=== PATIENT | male | born 1980 | race Caucasian/White ===

== ENCOUNTER 2023-06-03 18:00 | Inpatient (IN) | payer OTHER ==
[~2023-06-03] VITALS: Ht 185.4 cm; Wt 111.0 kg
[~2023-06-03 18:00] MED LIST: LANS30EC
[2023-06-03] MEDS ORDERED: PANT20 PO (19:29)
[2023-06-03] MEDS ORDERED: LAMO100 PO (19:29)
[2023-06-03] MEDS ORDERED: PRAZ2 PO (19:29)
[2023-06-03 20:06] LABS: Base Excess Venous 0.6 mmol/L; Bicarbonate Venous 24.1 mmol/L (24.0-30.0); PCO2 Venous 41.9 mmHg (38-42); pH Blood Venous 7.39 (7.34-7.37)
[2023-06-03] MEDS ORDERED: Azithromycin 250 MG Tab PO ONE (20:55)
[2023-06-03] MEDS ORDERED: CefTRIAXone Sodium 1,000 MG in NS 50 ML IV ONE (20:55)
[2023-06-03] MEDS ORDERED: Albuterol 2.5 MG/3 ML VIAL INH PRN (21:05)
[2023-06-03] MEDS ORDERED: Ondansetron HCl 2 MG / ML 2ML Vial IV PRN (21:10)
[2023-06-03] MEDS ORDERED: NS 1,000 ML IV SCH (21:10)
[2023-06-03] MEDS ORDERED: FLU VACC QS2023-24(6MOS UP)/PF 60 MCG/0.5 ML SYRINGE IM SCH (21:10)
[2023-06-03] MEDS ORDERED: Cefepime HCl 2,000 MG in NS 100 ML IV SCH (21:14)
[2023-06-03] MEDS ORDERED: QUETIAPINE FUM100 M3 PO (21:18)
[2023-06-03] MEDS ORDERED: TRAZ100 PO (21:18)
[2023-06-03 22:31] LABS: Adenovirus Not Detected (NOT DETECT); Bordetella pertussis Not Detected (NOT DETECT); Chlamydophila pneumoniae Not Detected (NOT DETECT); Coronavirus 229E Not Detected (NOT DETECT); Coronavirus HKU1 Not Detected (NOT DETECT); Coronavirus NL63 Not Detected (NOT DETECT); Coronavirus OC43 Not Detected (NOT DETECT); Human Metapneumovirus Not Detected (NOT DETECT); Human Rhinovirus/Enterovirus Not Detected (NOT DETECT); Influenza A/2009-H1 Not Detected (NOT DETECT); Influenza A/H1 Not Detected (NOT DETECT); Influenza A/H3 Not Detected (NOT DETECT); Influenza B Not Detected (NOT DETECT); Mycoplasma pneumoniae Not Detected (NOT DETECT); Parainfluenza Virus 1 Not Detected (NOT DETECT); Parainfluenza Virus 2 Not Detected (NOT DETECT); Parainfluenza Virus 3 Not Detected (NOT DETECT); Parainfluenza Virus 4 Not Detected (NOT DETECT); Respiratory Syncytial Virus Not Detected (NOT DETECT); SARS-Cov-2 (COVID-19), BioFire Not Detected (NOT DETECT)
--- NOTE | 2023-06-03 23:10 | NUR ---
ADMIT NOTE PT TRANSPORTED VIA ED GURNEY, AMBULATED TO HOSPITAL BED. EDUACTED ON SMOKING POLICY AND FIRE PREVENTION. PT BELONGINGS AT BEDSIDE. RECEIVED REPORT FROM ED RN SCOTT. BED IN LOWEST POSITION WITH CALL LIGHT WITHIN REACH.
[2023-06-03 23:14] VITALS: BP 128/87
[2023-06-04] MEDS ORDERED: ACET500 PO (00:39)
[2023-06-04] MEDS ORDERED: CODEINE-GUAIFE120 M1 PO (00:40)
[2023-06-04] MEDS ORDERED: ALBU90OI INH (00:40)
[2023-06-04] MEDS ORDERED: DISU250 PO (00:41)
[2023-06-04] MEDS ORDERED: DOXY100 PO (00:41)
[2023-06-04] MEDS ORDERED: IBUP600 PO (00:42)
[2023-06-04] MEDS ORDERED: KETOCONAZOLE TOP (00:44)
[2023-06-04] MEDS ORDERED: STIOLTO RESPIMAT4 G2 INH (00:48)
[2023-06-04] MEDS ORDERED: SILD50TA PO (00:48)
[2023-06-04 03:30] VITALS: BP 121/97
[2023-06-04] MEDS ORDERED: Acetaminophen 500 MG Tab PO PRN (03:40)
[2023-06-04] MEDS ORDERED: Ipratropium/Albuterol SulF 2.5-0.5MG/3 ML Amp INH SCH (03:45)
--- NOTE | 2023-06-04 03:56 | NUR ---
SHIFT SUMMARY PT ADMITTED THIS SHIFT. A&O X4, SBA TO BATHROOM. PT HAD SHOWER AFTER ARRIVING TO UNIT. CURRENTLY ON 3L O2 WITH SATS ABOVE 95%. RESPIRATORY PANEL NEGATIVE, ISOLATION COMPLETE. PT REFUSED TO WEAR SCDS HE GETS UP TO THE BATHROOM FREQUENTLY. PATIENT HAD TROUBLE FALLING ASLEPP. CALLED DR JOHNSON TO ORDER HOME BEDTIME MEDS. NS @ 100 ML/HR INFUISING. BED KEPT IN LOWEST POSIITON WITH CALL LIGHT WITHIN REACH. PT CALLS APPROPRAIETLY FOR NEEDS.
[2023-06-04] MEDS ORDERED: QUEtiapine Fumarate 100 MG Tab PO SCH (04:00)
[2023-06-04] MEDS ORDERED: TraZODone HCl 100 MG Tab PO SCH (04:00)
[2023-06-04] MEDS ORDERED: Pantoprazole Sodium 40 MG Tab PO SCH (06:00)
[2023-06-04 07:41] VITALS: BP 129/76
[2023-06-04] MEDS ORDERED: GuaiFENesin 600 MG TabCR PO SCH (09:00)
[2023-06-04] MEDS ORDERED: Azithromycin 500 MG in NS 250 ML IV SCH (09:00)
[2023-06-04] MEDS ORDERED: Enoxaparin 40 MG/0.4 ML SYR SC SCH (09:00)
[2023-06-04] MEDS ORDERED: LamoTRIgine 100 MG Tab PO SCH (09:00)
[2023-06-04 11:35] LABS: Hemoglobin 16.8 g/dL (13.5-17.5); Mean Corpuscular HGB 32.9 pg (26.0-34.0); Mean Corpuscular HGB Conc 36.5 g/dL (31.5-36.5); Mean Corpuscular Volume 90 fL (80-100); Mean Platelet Volume 9.2 fL (9.1-12.4); Platelet Count 312 K/mm3 (150-400); RDW Coefficient Variation 14.4 % (11.7-14.2); RDW Standard Deviation 42.3 fL (35.1-46.3); White Blood Cell Count 10.47 K/mm3 (4.00-11.30)
[2023-06-04 12:01] LABS: Bun/Creatinine Ratio 14.9 (12.0-20.0); Creatinine, Blood 1.14 mg/dL (0.60-1.20); Potassium, Blood 4.4 mmol/L (3.5-5.5)
--- NOTE | 2023-06-04 12:34 | NUR ---
pt laying in bed awake a/ox4, cooperative with care for the most part, is refusing lab draws, and did not understand that we can't pull blood from a piv, asked him to reconsider, he was agreeable after he took a nap, lungs are clear in uppers pool, course, crackles in bases, resp even and unalbored, no cough noted at this time, on r/a, hrr, no edema noted, ppp+2, cap refill <3 sec, vs stable, afebrile, piv to rac site is clear and patent, btx4, abd flat soft nontender, voids without diff, skin c/w/d, maew, brown, call light in reach.
--- NOTE | 2023-06-04 12:45 | NUR ---
Pt. is awake in bed when he welcomed my visit. Pt. is pleasant and displayed evidence of awareness and engagement. Pt. displayed evidence of being less interested in spiritual care, and more interested in conversation. Facilitated a life review, and after some time his parents arrived. Ptt. verbalized gratitude for the spiritual care visit.
[2023-06-04 14:52] VITALS: BP 117/84
--- NOTE | 2023-06-04 18:57 | NUR ---
Pt was irritable this am, he states he was up all night, he slept most of the shift, and is in much better spirits, iv was leaking at the end of the shift, so removed intact, and pt got into the shower, linen was changed. pt has a harsh productive cough, no further changes this shift. call light in reach.
[2023-06-04 18:59] LABS: Acinetobacter baumannii DNA Not Detected copy/mL (NOT DETECT); Adenovirus DNA Not Detected (NOT DETECT); Chlamydia pneumonia Not Detected (NOT DETECT); Enterobacter cloacae DNA Not Detected copy/mL (NOT DETECT); Escherichia coli DNA Not Detected copy/mL (NOT DETECT); Haemophilus influenzae DNA Not Detected copy/mL (NOT DETECT); Human Coronavirus RNA Not Detected (NOT DETECT); Human Metapneumovirus RNA Not Detected (NOT DETECT); Influenza virus A RNA Not Detected (NOT DETECT); Influenza virus B RNA Not Detected (NOT DETECT); Klebsiella aerogenes DNA Not Detected copy/mL (NOT DETECT); Klebsiella oxytoca DNA Not Detected copy/mL (NOT DETECT); Klebsiella pneumoniae DNA Not Detected copy/mL (NOT DETECT); Legionella pneumophila Not Detected (NOT DETECT); Moraxella catarrhalis DNA Not Detected copy/mL (NOT DETECT); Mycoplasma pneumoniae Not Detected (NOT DETECT); Parainfluenza virus RNA Not Detected (NOT DETECT); Proteus sp DNA Not Detected copy/mL (NOT DETECT); Pseudomonas aeruginosa DNA Not Detected copy/mL (NOT DETECT); Respiratory syncytial Vir RNA Not Detected (NOT DETECT); Rhinovirus+Enterovirus RNA Not Detected (NOT DETECT); Serratia marcescens DNA Not Detected copy/mL (NOT DETECT); Staphylococcus aureus DNA Not Detected copy/mL (NOT DETECT); Streptococcus agalactiae DNA Not Detected copy/mL (NOT DETECT); Streptococcus pneumoniae DNA Not Detected copy/mL (NOT DETECT); Streptococcus pyogenes DNA Not Detected copy/mL (NOT DETECT)
[2023-06-04 19:59] VITALS: BP 126/83
[2023-06-04] MEDS ORDERED: Lactobacil 2-S.Thermo-Bifido 1 1 Cap PO SCH (21:00)
[2023-06-04] MEDS ORDERED: Prazosin HCl 1 MG Cap PO SCH (21:00)
[2023-06-05 04:52] VITALS: BP 112/73
[2023-06-05 06:19] LABS: Albumin, Blood 3.4 g/dL (3.4-5.0); Albumin/Globulin Ratio 1.1 (0.8-1.8); Bilirubin, Total 0.9 mg/dL (0.1-1.0); Bun/Creatinine Ratio 12.6 (12.0-20.0); Calcium, Blood 8.7 mg/dL (8.5-10.1); Creatinine, Blood 1.11 mg/dL (0.60-1.20); Globulin, Blood 3.2 g/dL (2.2-4.0); Potassium, Blood 4.1 mmol/L (3.5-5.5); Total Protein, Blood 6.6 g/dL (6.4-8.2)
[2023-06-05 06:27] LABS: BASOPHILS ABSOLUTE AUTO 0.07 K/mm3 (0.00-0.23); BASOPHILS PERCENT AUTO 1 % (0-2); EOSINOPHILS ABSOLUTE AUTO 0.14 K/mm3 (0.00-0.68); EOSINOPHILS PERCENT AUTO 1 % (0-6); Hematocrit 48.6 % (37.0-53.0); Hemoglobin 16.4 g/dL (13.5-17.5); IMMATURE GRAN ABSOLUTE AUTO 0.23 K/mm3 (0.00-0.10); IMMATURE GRAN PERCENT AUTO 2 % (0-1); LYMPHOCYTES ABSOLUTE AUTO 3.08 K/mm3 (0.84-5.20); LYMPHOCYTES PERCENT AUTO 28 % (21-46); MONOCYTES ABSOLUTE AUTO 1.28 K/mm3 (0.16-1.47); MONOCYTES PERCENT AUTO 12 % (4-13); Mean Corpuscular HGB 29.8 pg (26.0-34.0); Mean Corpuscular HGB Conc 33.7 g/dL (31.5-36.5); Mean Corpuscular Volume 88 fL (80-100); Mean Platelet Volume 9.8 fL (9.1-12.4); NEUTROPHILS ABSOLUTE AUTO 6.25 K/mm3 (1.96-9.15); NEUTROPHILS PERCENT AUTO 57 % (41-73); Platelet Count 282 K/mm3 (150-400); RDW Coefficient Variation 13.3 % (11.7-14.2); RDW Standard Deviation 42.9 fL (35.1-46.3); White Blood Cell Count 11.05 K/mm3 (4.00-11.30)
[2023-06-05 08:19] VITALS: BP 123/96
[2023-06-05 16:43] VITALS: BP 156/93
--- NOTE | 2023-06-05 18:11 | NUR ---
SUMMARY- NO ACUTE EVENTS THIS SHIFT. PT IS ON 3L NC CONTINUOUSLY. PT MILDLY ANXIOUS THIS SHIFT, BUT MOSTLY CALM AND COOPERATIVE. IND IN ROOM. AAOX4.
[2023-06-05 20:41] VITALS: BP 123/76
[2023-06-06 04:31] VITALS: BP 118/86
--- NOTE | 2023-06-06 06:13 | NUR ---
PATIENT IS ALERT AND ORIENTED. WITH PIV LINE ON RIGHT FA PATENT AND INTACT. NO COMPLAINT MADE. ON OXYGEN INHALATION AT 2 LPM/NASAL CANNULA. NEEDS ATTENDED. CALL LIGHT WITHIN PATIENT'S REACH. AMBULATES ON HIS OWN. WILL CONTINUE TO MONITOR.
[2023-06-06 07:33] VITALS: BP 126/94
[2023-06-06] MEDS ORDERED: LevoFLOXacin 750 MG Tab PO SCH (12:00)
--- NOTE | 2023-06-06 15:25 | NUR ---
DAY SHIFT SUMMARY PT A/OX4. NO ACUTE EVENTS TODAY. PT ABLE TO MAKE NEEDS KNOWN AND ADVOCATE FOR SELF. CALLS APPROPIATELY. PT ON 1-2LPM VIA NASAL CANULA TO MAINTAIN O2 SATS GREATER THAN 60. PT CONTINUES TO HAVE COUGH, MOSTLY NON PRODUCTIVE. PT SOB WITH MIN-MOD ACTIVITY. FINAL RESULT FOR SPUTUM CULTURE RECVD. CALL TO DR DIAZ TO INFORM. NEW ABOX ORDERED. EKG ORDERED FOR 0 DUE TO QT ELONGATION EFFECTS OF MEDICATION. HOME O2 EVAL ORDERED. PT REPORTS HE IS SET UP WITH OXYGEN AT HOME BY THE 'S ADMINISTRATION--PT SET UP WITH 2LPM. RT AT BEDSIDE TO DO HOME O2 EVAL--RT WANTS TO INCLUDE OXYGEN REQUIREMENTS WITH ACTIVITY AND WILL COMPLETE EVAL CLOSER TO DISCHARGE. LIKELY DISCHARGE TOMORROW. PT IS RELYING ON PARENTS FOR TRANSPORT HOME. [place] TODAY AND HOME TOMORROW.
[2023-06-06 15:35] VITALS: BP 130/83
[2023-06-06 19:46] VITALS: BP 121/83
[2023-06-07 03:24] VITALS: BP 99/67
--- NOTE | 2023-06-07 04:49 | NUR ---
SHIFT SUMMARY 42 YR M ADMITTED ON 06/03/23. FULL CODE. NO ACUTE EVENTS THIS SHIFT. PT WENT TO SLEEP AFTER 2100 MEDS AND SLEPT FOR THE REST OF THE SHIFT. NO C/O PAIN OR DISCOMFORT. PT REMAINED ON 2 L O2 BY REQUEST STATING THAT HIS SATS TEND TO DROP WHEN HE IS SLEEPING.
[2023-06-07 07:40] VITALS: BP 123/76
[2023-06-07] MEDS ORDERED: LEVO750 PO (13:37)
[2023-06-07] MEDS ORDERED: VISBIOME 112.51 EACH PO (13:37)
[2023-06-07] MEDS ORDERED: MUCINEX600 MG PO (13:40)
--- NOTE | 2023-06-07 14:11 | NUR ---
PATIENT D/C'D TO HOME WITH FAMILY. D/C INSTRUCTIONS AND EDUCATION DISCUSSED WITH PATIENT AND COPY PROVIDED. RX MEDICATIONS FAXED TO [facility]. PATIENT DENIES ANY FURTHER QUESTIONS OR CONCERNS.
== END 2023-06-07 14:10 | disposition home or self-care (01) | DRG 193 ==
LOC: ER 18:00 → ERHOLD 21:04 → MEDS 21:04
PROVIDERS: Family Medicine; Hospitalist; Nurse Practitioner Acute Care; Student in an Organized Health Care Education/Training Program; ADMIT Student in an Organized Health Care Education/Training Program
DX: J18.9 Pneumonia, unspecified organism (principal); J96.01 Acute respiratory failure with hypoxia; F43.10 Post-traumatic stress disorder, unspecified; F32.A Depression, unspecified; J45.20 Mild intermittent asthma, uncomplicated; G47.33 Obstructive sleep apnea (adult) (pediatric); Z11.52 Encounter for screening for COVID-19; B96.89 Other specified bacterial agents as the cause of diseases classified elsewhere; Z79.899 Other long term (current) drug therapy
CPT/HCPCS: 0202U; 36415; 71260; 80048; 80053; 82010; 82803; 83605; 84145; 85025; 85027; 87070; 87077; 87186; 87205; 87449; 87633; 93005; 93010; 94640; 94664; 94760; 94761; 94762; 96365-59; 99285-25; A9270; J0456; J0692; J0696; J7030; J7050; Q9967

== ENCOUNTER 2024-01-17 22:21 | Observation (INO) | payer OTHER ==
[~2024-01-17] VITALS: Ht 188 cm; Wt 102.1 kg
[~2024-01-17 22:21] MED LIST changes: +ACET500 PO; +ALBU90OI INH; +CODEINE-GUAIFE120 M1 PO; +DISU250 PO; +DOXY100 PO; +IBUP600 PO; +KETOCONAZOLE TOP; +LAMO100 PO; +LEVO750 PO; +MUCINEX600 MG PO; +PANT20 PO; +PRAZ2 PO; +QUETIAPINE FUM100 M3 PO; +SILD50TA PO; +STIOLTO RESPIMAT4 G2 INH; +TRAZ100 PO; +VISBIOME 112.51 EACH PO
[2024-01-18] MEDS ORDERED: DiphenhydrAMINE HCl 50 MG Cap PO ONE (00:05)
[2024-01-18] MEDS ORDERED: LORazepam 1 MG Tab PO ONE ×2 (00:10→23:55)
[2024-01-18] MEDS ORDERED: DiphenhydrAMINE HCl 50 MG/ML 1ML Vial IM ONE (00:45)
[2024-01-18] MEDS ORDERED: Haloperidol Lactate Inj. 5 MG/ML Injection IM ONE (00:45)
[2024-01-18] MEDS ORDERED: LORazepam 2 MG/ML 1ML Injection IM ONE (00:45)
[2024-01-18 01:59] LABS: BASOPHILS ABSOLUTE AUTO 0.03 K/mm3 (0.00-0.23); BASOPHILS PERCENT AUTO 0 % (0-2); EOSINOPHILS ABSOLUTE AUTO 0.02 K/mm3 (0.00-0.68); EOSINOPHILS PERCENT AUTO 0 % (0-6); Hematocrit 46.2 % (37.0-53.0); Hemoglobin 15.9 g/dL (13.5-17.5); IMMATURE GRAN ABSOLUTE AUTO 0.13 K/mm3 (0.00-0.10); IMMATURE GRAN PERCENT AUTO 1 % (0-1); LYMPHOCYTES ABSOLUTE AUTO 1.59 K/mm3 (0.84-5.20); LYMPHOCYTES PERCENT AUTO 12 % (21-46); MONOCYTES ABSOLUTE AUTO 1.15 K/mm3 (0.16-1.47); MONOCYTES PERCENT AUTO 9 % (4-13); Mean Corpuscular HGB 29.3 pg (26.0-34.0); Mean Corpuscular HGB Conc 34.4 g/dL (31.5-36.5); Mean Corpuscular Volume 85 fL (80-100); Mean Platelet Volume 9.8 fL (9.1-12.4); NEUTROPHILS ABSOLUTE AUTO 10.13 K/mm3 (1.96-9.15); NEUTROPHILS PERCENT AUTO 78 % (41-73); Platelet Count 301 K/mm3 (150-400); RDW Coefficient Variation 12.5 % (11.7-14.2); RDW Standard Deviation 38.7 fL (35.1-46.3); Red Blood Cell Count 5.42 M/mm3 (4.30-5.90); White Blood Cell Count 13.05 K/mm3 (4.00-11.30)
[2024-01-18 02:15] LABS: Acetaminophen, Random <2.0 ug/mL (10.0-30.0); Alanine Aminotransfer (ALT/SGP 39 U/L (12-78); Albumin, Blood 3.6 g/dL (3.4-5.0); Albumin/Globulin Ratio 1.2 (0.8-1.8); Alk Phos 73 U/L (50-136); Anion Gap 9 mmol/L (3-11); Aspartate Aminotrans (AST/SGOT 23 U/L (12-37); Bilirubin, Total 0.4 mg/dL (0.1-1.0); Blood Urea Nitrogen 14 mg/dL (8-24); Bun/Creatinine Ratio 13.2 (12.0-20.0); CO2, Blood 22 mmol/L (21-32); Calcium, Blood 8.3 mg/dL (8.5-10.1); Chloride, Blood 109 mmol/L (98-108); Creatinine, Blood 1.06 mg/dL (0.60-1.20); Ethanol (Alcohol), Blood, Med <3 mg/dL; Globulin, Blood 3.1 g/dL (2.2-4.0); Glomerular Filtration Rate 89 (60-); Glucose, Blood 146 mg/dL (70-99); Potassium, Blood 3.1 mmol/L (3.5-5.5); Salicylate 4.4 mg/dL (2.8-20.0); Sodium, Blood 137 mmol/L (136-145); Total Protein, Blood 6.7 g/dL (6.4-8.2)
[2024-01-18 02:28] LABS: Influenza A, PCR NEGATIVE (NEGATIVE); Influenza B, PCR NEGATIVE (NEGATIVE); Resp Syncytial Virus, PCR NEGATIVE (NEGATIVE); SARS-Cov-2 (COVID-19) PCR, MMC NEGATIVE (NEGATIVE)
[2024-01-18] MEDS ORDERED: Potassium Chloride 20 MEQ TabCR PO ONE (03:30)
== END 2024-01-18 13:57 | disposition home or self-care (01) ==
LOC: ER 22:21 → EOR 22:22
PROVIDERS: ADMIT Student in an Organized Health Care Education/Training Program
DX: F31.9 Bipolar disorder, unspecified (principal); F12.90 Cannabis use, unspecified, uncomplicated; F43.10 Post-traumatic stress disorder, unspecified; J45.20 Mild intermittent asthma, uncomplicated; G47.33 Obstructive sleep apnea (adult) (pediatric); Z79.899 Other long term (current) drug therapy
CPT/HCPCS: 0241U; 80053; 80320; 85025; 93005; 93010; 96372; 99285-25; A9270; G0378; G0480; J1200; J1630; J2060